=== PATIENT | female | born 1970 | race African-American/Black ===

== ENCOUNTER 2024-06-21 04:06 | Day surgery (SDC) | payer BC ==
[2024-06-19 16:36] VITALS: BMI 37.2
[2024-06-21] MEDS ORDERED: oxyCODONE HCL 5 MG TABLET PO PRN (09:46)
[2024-06-21] MEDS ORDERED: ONDANSETRON 4 MG/2 ML VIAL IVPUSH PRN (09:46)
[2024-06-21] MEDS ORDERED: LACTATED RINGERS SOLUTION 1,000 ML IV SCH (10:00)
[2024-06-21] MEDS ORDERED: MIDAZOLAM HCL 2 MG/2 ML SINGLE DOSE VIAL ONE (10:11)
[2024-06-21] MEDS ORDERED: PROPOFOL 20 ML ONE ×2 (10:12→11:20)
[2024-06-21] MEDS ORDERED: ACETAMINOPHEN INJECTION 100 ML ONE (10:54)
[2024-06-21 14:00] VITALS: BP 119/75; PULSE 75; RESP 18; TEMP 97.3
== END 2024-06-21 14:01 | disposition home or self-care (01) ==
LOC: JASU-SURG 04:06
PROVIDERS: ATTEND Specialist
PROC: 0UB98ZZ Excision of Uterus, Via Natural or Artificial Opening Endoscopic (ICD-10-PCS; principal; 2024-06-21 10:30)
DX: D25.0 Submucous leiomyoma of uterus (principal); N93.9 Abnormal uterine and vaginal bleeding, unspecified
CPT/HCPCS: 81025; 88305-TC; 94760; J0131